=== PATIENT | female | born 1960 | race Two or more races ===

== ENCOUNTER → 2022-10-02 | Outpatient (CLI) | payer OTHER, MEDICAID ==
[~2022-10-02] MED LIST: ALBUTEROL SULF 2.5 MG/0.5ML(0.5%) NEB SOLN ONE
== END | disposition home or self-care (01) ==
LOC: RT 09-18 10:05
PROVIDERS: ATTEND Internal Medicine Pulmonary Disease
DX: J44.9 Chronic obstructive pulmonary disease, unspecified (principal)
CPT/HCPCS: 94060; 94727; 94729